=== PATIENT | female | born 1965 | race Two or more races ===

== ENCOUNTER 2020-12-26 06:40 | Day surgery (SDC) | payer OTHER ==
[~2020-12-26 06:40] MED LIST: SYNTHROID112 MCG PO
== END 2020-12-26 16:45 | disposition home or self-care (01) ==
LOC: CIR.AMB 06:40
PROVIDERS: ATTEND Surgery
DX: D24.1 Benign neoplasm of right breast (principal); Z20.822 Contact with and (suspected) exposure to COVID-19